=== PATIENT | male | born 1995 | race African-American/Black ===

== ENCOUNTER 2021-06-27 17:35 | Emergency (ER) | payer OTHER ==
[~2021-06-27] VITALS: Ht 190.5 cm; Wt 86.0 kg
[2021-06-27 20:42] VITALS: BP 119/76
== END 2021-06-27 22:17 | disposition home or self-care (01) ==
LOC: ER 17:35
DX: R07.89 Other chest pain (principal); Z98.890 Other specified postprocedural states
CPT/HCPCS: 71045; 93005; 99283